=== PATIENT | male | born 1975 ===

== ENCOUNTER 2017-05-07 05:08 | Emergency (ER) | payer MEDICAID ==
[2017-05-07 05:09] VITALS: BMI 27.3
[2017-05-07 05:30] VITALS: RESP 18; TEMP 98
[2017-05-07] MEDS ORDERED: Albuterol-Ipratrop 3 mg / 0.5 (3 ml) UD INH STA ×2 (05:49→06:25)
--- NOTE | 2017-05-07 05:52 | ED PDOC ---
HPI: General Adult Time Seen by Provider: 05/07/17 05:40 Chief Complaint (Nursing): Flu-like Symptoms Chief Complaint (Provider): Shortness of breath, cough History Per: Patient History/Exam Limitations: no limitations Onset/Duration Of Symptoms: Days Have you had recent travel within the past 21 days to any of the following countries: [place], [place], [place] or [place]?: No Current Symptoms Are (Timing): Still Present Severity: Moderate Additional History Per: Patient Additional Complaint(s): 42 y/o male complaining of shortness of breath over the last few days associated with productive cough with white sputum, nasal congestion. Tonight he is more short of breath, prompting him to be seen. A few days ago he also reports fever that is resolved. No other complaints at this time. Past Medical History Vital Signs: Last Vital Signs Temp 98.0 F 05/07/17 05:29 Pulse 115 H 05/07/17 05:29 Resp 18 05/07/17 05:29 BP 112/73 05/07/17 05:29 Pulse Ox 98 05/07/17 05:54 - Medical History PMH: Anxiety, Bipolar Disorder, Depression, Personality Disorder, Post Traumatic Stress Disorder Denies: Asthma, Diabetes, Hepatitis, HIV, HTN, Chronic Kidney Disease, Seizures, Sexually Transmitted Disease - Surgical History Surgical History: Appendectomy - Family History Family History: States: Unknown Family Hx - Social History Current smoker - smoking cessation education provided: Yes (1/2 ppd) Alcohol: None Drugs: Denies - Immunization History Hx Tetanus Toxoid Vaccination: No Hx Influenza Vaccination: No Hx Pneumococcal Vaccination: No - Home Medications Home Medications: Ambulatory Orders Medication Instructions Recorded Fluoxetine HCl [Prozac] 40 mg PO DAILY 03/13/16 Gabapentin [Neurontin] 800 mg PO BID 03/13/16 QUEtiapine [SEROquel] 200 mg PO DAILY 03/13/16 Albuterol HFA [Ventolin HFA 90 1 - 2 puff IH Q4H PRN #1 bottle 05/07/17 mcg/actuation (8 g)] predniSONE [Prednisone] 40 mg PO DAILY #8 tab 05/07/17 - Allergies Allergies/Adverse Reactions: Allergies Allergy/AdvReac Type Severity Reaction Status Date / Time FISH Allergy SHORTNESS Verified 03/13/16 10:55 OF BREATH seafood Allergy Intermediate RASH Uncoded 03/13/16 10:55 Review of Systems ROS Statement: Except As Marked, All Systems Reviewed And Found Negative Respiratory: Positive for: Cough, Shortness of Breath Physical Exam - Reviewed Nursing Documentation Reviewed: Yes Vital Signs Reviewed: Yes - Physical Exam Appears: Positive for: Well, Non-toxic, No Acute Distress Head Exam: Positive for: ATRAUMATIC, NORMAL INSPECTION, NORMOCEPHALIC Skin: Positive for: Normal Color, Warm, DRY Eye Exam: Positive for: EOMI, Normal appearance, PERRL ENT: Positive for: Normal ENT Inspection Neck: Positive for: Normal, Painless ROM Cardiovascular/Chest: Positive for: Regular Rate, Rhythm Respiratory: Positive for: Normal Breath Sounds, Wheezing (diffuse). Negative for: Accessory Muscle Use, Respiratory Distress Gastrointestinal/Abdominal: Positive for: Normal Exam, Bowel Sounds, Soft Back: Positive for: Normal Inspection Extremity: Positive for: Normal ROM Neurologic/Psych: Positive for: Alert, Oriented - ECG ECG: Positive for: Interpreted By Me, Viewed By Me ECG Rhythm: Positive for: Normal QRS, Normal ST Segment, Sinus Rhythm (103), Sinus Tachycardia. Negative for: ST/T Changes, Nonspecific Changes O2 Sat by Pulse Oximetry: 98 Medical Decision Making Medical Decision Making: Impression: Cough, Shortness of Breath, Wheezing Plan: - Duo Neb - Prednisone Peak flow reviewed and is improved. On evaluation the patient is resting comfortably and his wheezing is resolved. Patient instructed to follow up with his PMD in the next two days. All questions answered. Scribe Attestation: Documented by Stella Moss, acting as a scribe for Kendra Ring MD. Provider Scribe Attestation: All medical record entries made by the Scribe were at my direction and personally dictated by me. I have reviewed the chart and agree that the record accurately reflects my personal performance of the history, physical exam, medical decision making, and the department course for this patient. I have also personally directed, reviewed, and agree with the discharge instructions and disposition. Disposition - Clinical Impression Clinical Impression: Wheezing - Patient ED Disposition Is Patient to be Admitted: No Doctor Will See Patient In The: Office Counseled Patient/Family Regarding: Diagnosis, Need For Followup - Disposition Referrals: [facility] [Outside] [facility] [Outside] Disposition: Routine/Home Disposition Time: 06:25 Condition: IMPROVED Additional Instructions: follow up with your doctor n 2 days return to the ED with any worsening or concerning symptoms Instructions: Wheezing (ED) Forms: [employer] (Angolan)
[2017-05-07] MEDS ORDERED: Albuterol-Ipratrop 3 mg / 0.5 (3 ml) UD ONE (06:37)
[2017-05-07 06:53] VITALS: BP 116/74; PULSE 94; O2SAT 99
== END 2017-05-07 06:53 | disposition home or self-care (01) ==
LOC: H.ER 05:08
DX: R06.2 Wheezing (principal)

== ENCOUNTER 2017-05-22 18:38 | Emergency (ER) | payer MEDICAID ==
[2017-05-22 18:38] VITALS: BMI 27.3
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
[2017-05-22] MEDS ORDERED: Naproxen 500 MG TAB PO STA (20:54)
--- NOTE | 2017-05-23 11:16 | RAD ---
PROCEDURE: Right Hand Radiographs. HISTORY: HAND INJURY COMPARISON: None. FINDINGS: BONES: Normal. No fracture. JOINTS: Normal. No osteoarthritic changes. SOFT TISSUES: Normal. OTHER FINDINGS: None. IMPRESSION: Normal right hand radiographs.
== END 2017-05-22 21:00 | disposition home or self-care (01) ==
LOC: H.ER 18:38
DX: S61.211A Laceration without foreign body of left index finger without damage to nail, initial encounter (principal); W26.8XXA Contact with other sharp object(s), not elsewhere classified, initial encounter; Y92.89 Other specified places as the place of occurrence of the external cause

== ENCOUNTER 2017-08-03 03:31 | Emergency (ER) | payer MEDICAID, OTHER ==
[2017-08-03 03:31] VITALS: BMI 27.3
[2017-08-03 04:00] VITALS: BP 118/79; PULSE 116; RESP 17; TEMP 97.8; O2SAT 96
[2017-08-03] MEDS ORDERED: Oxycodone/Acetaminophen 5/325 mg Tab PO STA (04:06)
--- NOTE | 2017-08-03 04:20 | ED PDOC ---
HPI: Dental Pain/Injury Time Seen by Provider: 08/03/17 03:48 Chief Complaint (Nursing): Dental Pain Chief Complaint (Provider): Dental Pain History Per: Patient History/Exam Limitations: no limitations Onset/Duration Of Symptoms: Days (x 5) Current Symptoms Are (Timing): Still Present Additional Complaint(s): Maik is a 42 year old male who presents to the emergency department with right lower dental pain for 5 days. Patient states he saw dentist and was told he needs a root canal, but has not followed up. Patient reports pain radiates to jaw and ears. States pain with chewing, but denies having fever, difficulty swallowing or drooling PMD: No Family Provider Past Medical History Reviewed: Historical Data, Nursing Documentation, Vital Signs Vital Signs: Last Vital Signs Temp 97.8 F 08/03/17 03:56 Pulse 116 H 08/03/17 03:56 Resp 17 08/03/17 03:56 BP 118/79 08/03/17 03:56 Pulse Ox 96 08/03/17 03:56 - Medical History PMH: Anxiety, Bipolar Disorder, Depression, Personality Disorder, Post Traumatic Stress Disorder Denies: Asthma, Diabetes, Hepatitis, HIV, HTN, Chronic Kidney Disease, Seizures, Sexually Transmitted Disease - Surgical History Surgical History: Appendectomy - Family History Family History: States: Unknown Family Hx - Immunization History Hx Tetanus Toxoid Vaccination: No Hx Influenza Vaccination: No Hx Pneumococcal Vaccination: No - Home Medications Home Medications: Ambulatory Orders Medication Instructions Recorded Fluoxetine HCl [Prozac] 40 mg PO DAILY 03/13/16 Gabapentin [Neurontin] 800 mg PO BID 03/13/16 QUEtiapine [SEROquel] 200 mg PO DAILY 03/13/16 Albuterol HFA [Ventolin HFA 90 1 - 2 puff IH Q4H PRN #1 bottle 05/07/17 mcg/actuation (8 g)] predniSONE [Prednisone] 40 mg PO DAILY #8 tab 05/07/17 Cephalexin [Keflex] 500 mg PO QID #20 capsule 05/22/17 Naproxen [Naprosyn] 500 mg PO BID PRN #14 tablet 08/03/17 Penicillin VK [Penicillin VK Tab] 250 mg PO Q6H #20 tab 08/03/17 - Allergies Allergies/Adverse Reactions: Allergies Allergy/AdvReac Type Severity Reaction Status Date / Time FISH Allergy SHORTNESS Verified 12/23/17 04:00 OF BREATH seafood Allergy Intermediate RASH Uncoded 08/03/17 04:00 Review of Systems ROS Statement: Except As Marked, All Systems Reviewed And Found Negative Constitutional: Negative for: Fever ENT: Positive for: Other (Dental Pain) Physical Exam - Reviewed Nursing Documentation Reviewed: Yes Vital Signs Reviewed: Yes - Physical Exam Appears: Positive for: Well (No Facial Swelling) ENT: Positive for: Other (Neurotic lower back molar with surrounding erythema, no neuropathy) Neck: Positive for: Supple - ECG O2 Sat by Pulse Oximetry: 96 (RA) Pulse Ox Interpretation: Normal Medical Decision Making Medical Decision Making: Time: 04:06 Prior charts/visits were reviewed and shows substance abuse. Patient's [employer] database and was query reviewing last narcotics December 2016. Given substance abuse of PCP and cocaine, pain will be treated in ER, but will not receive narcotics. Plan: - Penicillin VK Tab - Percocet 5/325 mg Tab Upon provider evaluation patient is medically stable, and requires no further treatment in the ED at this time. Patient will be discharged with Rx for Naprosyn and Penicillin VK Tab. Counseling was provided and all questions were answered regarding diagnosis and need for follow up with dentist. There is agreement to discharge plan. Return if symptoms persist or worsen. Scribe Attestation: Documented by Rocky Christiansen, acting as a scribe for Jg Jeong III, DO Provider Scribe Attestation: All medical record entries made by the Scribe were at my direction and personally dictated by me. I have reviewed the chart and agree that the record accurately reflects my personal performance of the history, physical exam, medical decision making, and the department course for this patient. I have also personally directed, reviewed, and agree with the discharge instructions and disposition. Disposition - Clinical Impression Clinical Impression: Pain, dental - Patient ED Disposition Is Patient to be Admitted: No - Disposition Disposition: Routine/Home Disposition Time: 04:22 Condition: STABLE Additional Instructions: Followup with dentist as soon as possible. Return to ER for any worse or new symptoms. Prescriptions: Naproxen [Naprosyn] 500 mg PO BID PRN #14 tablet PRN Reason: Pain, Moderate (4-7) Penicillin VK [Penicillin VK Tab] 250 mg PO Q6H #20 tab Instructions: Dental Caries (ED) Forms: [employer] (Telugu)
[2017-08-03] MEDS ORDERED: Oxycodone/Acetaminophen 5/325 mg Tab ONE (04:39)
== END 2017-08-03 04:45 | disposition home or self-care (01) ==
LOC: H.ER 03:31
DX: K08.89 Other specified disorders of teeth and supporting structures (principal); F31.9 Bipolar disorder, unspecified; F43.10 Post-traumatic stress disorder, unspecified

== ENCOUNTER 2017-09-27 06:31 | Inpatient (IN) | payer SELFPAY ==
[2017-09-27 06:31] VITALS: BMI 27.3
--- NOTE | 2017-09-27 08:40 | ED PDOC ---
HPI: Psych/Substance Abuse Time Seen by Provider: 09/27/17 07:08 Chief Complaint (Nursing): Psychiatric Evaluation Chief Complaint (Provider): sucidial ideation History Per: Patient History/Exam Limitations: no limitations Onset/Duration Of Symptoms: Days (12/25/17) Current Symptoms Are (Timing): Still Present Suicide/Self Injury Attempted (Context): Cut Wrists Modifying Factor(s): Marijuana, Cocaine, Other (PCP) Associated Symptoms: Depression, Suicidal Thoughts, Suicidal Plan Additional Complaint(s): Maik Cohen, a 42 year old male patient with a past medical history of depression and bipolar disorder presents to the ED complaining of suicidal ideation. He states he wanted to cut his wrist today. Denies of taking Prozac or Seroquel medication. Also denies current homicidal ideation. PMD: Provider TBD Past Medical History Reviewed: Historical Data, Nursing Documentation, Vital Signs Vital Signs: Last Vital Signs Temp 98 F 09/27/17 06:45 Pulse 110 H 09/27/17 06:45 Resp 18 09/27/17 06:45 BP 106/68 09/27/17 06:45 Pulse Ox 98 09/27/17 06:45 - Medical History PMH: Anxiety, Bipolar Disorder, Depression, Personality Disorder, Post Traumatic Stress Disorder Denies: Asthma, Diabetes, Hepatitis, HIV, HTN, Chronic Kidney Disease, Seizures, Sexually Transmitted Disease - Surgical History Surgical History: Appendectomy - Family History Family History: States: Unknown Family Hx - Social History Drugs: Cannabis, Cocaine, Other (PCP) - Immunization History Hx Tetanus Toxoid Vaccination: No Hx Influenza Vaccination: No Hx Pneumococcal Vaccination: No - Home Medications Home Medications: Ambulatory Orders Medication Instructions Recorded Fluoxetine HCl [Prozac] 40 mg PO DAILY 03/13/16 Gabapentin [Neurontin] 800 mg PO TID 03/13/16 QUEtiapine [SEROquel] 200 mg PO DAILY 03/13/16 Albuterol HFA [Ventolin HFA 90 1 - 2 puff IH Q4H PRN #1 bottle 05/07/17 mcg/actuation (8 g)] - Allergies Allergies/Adverse Reactions: Allergies Allergy/AdvReac Type Severity Reaction Status Date / Time FISH Allergy SHORTNESS Verified 09/27/17 06:45 OF BREATH seafood Allergy Intermediate RASH Uncoded 08/03/17 04:00 Review of Systems ROS Statement: Except As Marked, All Systems Reviewed And Found Negative Psych: Positive for: Suicidal ideation. Negative for: Other (homicidal ideation ) Physical Exam - Reviewed Nursing Documentation Reviewed: Yes Vital Signs Reviewed: Yes - Physical Exam Appears: Positive for: Well, Non-toxic, No Acute Distress Head Exam: Positive for: ATRAUMATIC, NORMAL INSPECTION, NORMOCEPHALIC Skin: Positive for: Normal Color, Warm, Dry Eye Exam: Positive for: EOMI, Normal appearance, PERRL ENT: Positive for: Normal ENT Inspection Neck: Positive for: Normal, Painless ROM, Supple. Negative for: Decreased ROM Cardiovascular/Chest: Positive for: Regular Rate, Rhythm. Negative for: Murmur , Bradycardia Respiratory: Positive for: Normal Breath Sounds. Negative for: Accessory Muscle Use, Wheezing, Respiratory Distress Gastrointestinal/Abdominal: Positive for: Normal Exam, Bowel Sounds, Soft. Negative for: Tenderness, Guarding Back: Positive for: Normal Inspection. Negative for: L CVA Tenderness, R CVA Tenderness Extremity: Positive for: Normal ROM. Negative for: Tenderness, Pedal Edema, Deformity Neurologic/Psych: Positive for: Alert, Oriented (x3) - Laboratory Results Result Diagrams: 09/27/17 08:43 09/27/17 08:43 - ECG O2 Sat by Pulse Oximetry: 98 (RA) Pulse Ox Interpretation: Normal Medical Decision Making Medical Decision Making: Time: 7:52 Initial Plan: --Acetaminophen --Alcohol serum --BMP --Drug screen --Salicylate --Crisis evaluation --ED urine dipstick --CBC --1:1 Observation for suicide precaution --Reevaluation Vital signs are stable. Labs reviewed. In my opinion there are no current acute medical conditions that contraindicate the placement of this patient in a psychiatric unit. Patient is accepted by Dr Pang for admission. Documented by Heather Coelho acting as a scribe for Huy Alegre MD. All medical record entries made by the Scribe were at my direction and personally dictated by me. I have reviewed the chart and agree that the record accurately reflects my personal performance of the history, physical exam, medical decision making, and the department course for this patient. I have also personally directed, reviewed, and agree with the discharge instructions and disposition. Disposition - Clinical Impression Clinical Impression: Bipolar disorder - Patient ED Disposition Is Patient to be Admitted: Yes Doctor Will See Patient In The: Hospital Counseled Patient/Family Regarding: Studies Performed, Diagnosis - Disposition Disposition Time: 10:50 Condition: FAIR - Pt Status Changed To: Hospital Disposition Of: Inpatient - Admit Certification Admit to Inpatient:: After my assessment, the patient will require hospitalization for at least two midnights. This is because of the severity of symptoms shown, intensity of services needed, and/or the medical risk in this patient being treated as an outpatient. - POA Present On Arrival: None
[2017-09-27 09:03] LABS: BASO # 0.1 K/uL (0.0-0.2); BASO % 1.2 % (0.0-2.0); EOS # 0.2 K/uL (0.0-0.7); EOS % 2.1 % (0.0-4.0); HEMOGLOBIN 15.6 g/dL (12.0-18.0); LYMPH # 2.8 K/uL (1.0-4.3); LYMPH % 30.4 % (20.0-40.0); MEAN CORPUSCULAR HEMOGLOBIN 29.6 pg (27.0-31.0); MEAN CORPUSCULAR HGB CONC 34.3 g/dL (33.0-37.0); MEAN PLATELET VOLUME 8.2 fl (7.2-11.7); MONO # 0.9 K/uL (0.0-0.8); MONO % 9.7 % (0.0-10.0); NEUT # 5.2 K/uL (1.8-7.0); NEUT % 56.6 % (50.0-75.0); NRBC % 0.1 % (0.0-0.0); RBC 5.28 Mil/uL (4.40-5.90); RED CELL DISTRIBUTION WIDTH 13.6 % (11.5-14.5); WHITE BLOOD COUNT 9.1 K/uL (4.8-10.8)
[2017-09-27 09:14] LABS: MEAN CELL VOLUME 86.3 fl (80.0-94.0)
[2017-09-27 09:21] LABS: BLOOD UREA NITROGEN 12 mg/dl (9-20); CALCIUM 9.3 mg/dL (8.4-10.2); GFR AFRICAN-AMERICAN > 60; GFR NON-AFRICAN AMERICAN > 60
[2017-09-27 09:22] LABS: ACETAMINOPHEN < 10.0 ug/ml (10.0-30.0); SALICYLATE < 1.0 mg/dl
[2017-09-27 11:42] LABS: BARBITURATES, UR NEGATIVE (NEGATIVE); BENZODIAZEPINES, UR NEGATIVE (NEGATIVE); OPIATES, UR NEGATIVE (NEGATIVE); PHENCYCLIDINE, UR POSITIVE (NEGATIVE)
[2017-09-27 12:21] VITALS: O2SAT 100
[2017-09-27] MEDS ORDERED: Alum-Mag Hydrox-Simethicone Susp (30 mL) PO PRN (15:13)
[2017-09-27] MEDS ORDERED: Magnesium Hydroxide Susp 30 ml UD PO PRN (15:13)
[2017-09-27] MEDS ORDERED: DiphenhydrAMINE 50 mg/ml Inj IM PRN (15:13)
--- NOTE | 2017-09-27 15:30 | PCM.PSYCH ---
Initial Psychiatric Evaluation - Initial Psychiatric Evaluation Type of Admission: Voluntary Legal Status: Capacity Chief Complaint (in patient's own words): I am depressed because I could not see my children Patient's Reaction to Hospitalization: pt requested help History of Present Illness and Precipitating Events: pt with previous psychiatric diagnosis of polysubstance use and depression Pt is a 42 year old, , , Male presented to ED secondary to Depression with Suicidal thoughts.pt with previous psychiatric diagnosis of polysubstance use and depression Pt reported suicidal ideation with plan to end his life by cutting his wrist, . Pt stated that he is currently giving up on life, due to losing his job, and his family. Pt is currently from his due to drug use, and has not seen his kids in 2 years. . Pt reported having sleeping disturbances and poor appetite, feeling hopeless and helpless . pt has been using PCP nad cocaine last use two days ago, dreported passive suicidal ideations with no plan or intent on the unit, denied manic or psychotic symptoms Current Medications: Active Medications Generic Name Dose Route Start Last Admin Trade Name Aricq PRN Reason Stop Dose Admin Acetaminophen 650 mg 09/27/17 15:13 Tylenol 325mg Tab PO Q4 PRN Pain, moderate (4-7) Al Hydrox/Mg Hydrox/Simethicone 30 ml 09/27/17 15:13 Maalox Plus 30 Ml PO Q4 PRN Dyspepsia Diphenhydramine HCl 50 mg 09/27/17 15:13 Benadryl IM Q6 PRN Extrapyramidal S/S Unable PO Diphenhydramine HCl 50 mg 09/27/17 15:13 Benadryl PO Q6 PRN Extrapyramidal Symptoms Gabapentin 300 mg 09/27/17 17:00 Neurontin PO TID SUSY Haloperidol 5 mg 09/27/17 15:13 Haldol PO Q4 PRN Agitation Haloperidol Lactate 5 mg 09/27/17 15:13 Haldol IM Q4 PRN Agitation, Unable to Take PO Lorazepam 2 mg 09/27/17 15:13 Ativan IM Q4 PRN Anxiety/Agitation,Unable PO Lorazepam 1 mg 09/27/17 15:15 Ativan PO TID PRN Anxiety Magnesium Hydroxide 30 ml 09/27/17 15:13 Milk Of Magnesia PO HS PRN Constipation Mirtazapine 15 mg 09/27/17 22:00 Remeron PO HS [facility] Past Psychiatric History - Past Psychiatric History Explanation of prior treatment: multiple inpatient hospitalizations, hx of non compliance History of ETOH/Drug Use: pcp and cocaine use disorder Pertinent Medical Hx (Current Medical&Sleep Prob, Allergies): Allergies Allergy/AdvReac Type Severity Reaction Status Date / Time FISH Allergy SHORTNESS Verified 09/27/17 06:45 OF BREATH seafood Allergy Intermediate RASH Uncoded 08/03/17 04:00 Fluoxetine HCl [Prozac] 40 mg PO DAILY 03/13/16 Gabapentin [Neurontin] 800 mg PO TID 03/13/16 QUEtiapine [SEROquel] 200 mg PO DAILY 03/13/16 Albuterol HFA [Ventolin HFA 90 mcg/actuation (8 g)] 1 - 2 puff IH Q4H PRN #1 bottle 05/07/17 Mental Status Examination - Personal Presentation Personal Presentation: Looks stated age - Affect Affect: Constricted, Depressed - Motor Activity Motor Activity: Psychomotor Retardation - Reliability in Providing Information Reliability in Providing Information: Poor, due to altered mood - Speech Speech: Relevant - Mood Mood: Depressed, Anxious - Formal Thought Process Formal Thought Process: Circumstantial - Hallucinations/Delusions Additional comments: denied perceptual disturbances, non elicited - Obsessions/Compulsions Obsessions: No Compulsions: No - Cognitive Functions Orientation: Person, Place, Situation Sensorium: Alert Judgement: Imparied, as evidence by: Poor judgement, Imparied, as evidence by: Lack of insight into illness - Risk Risk: Withdrawal, Diminished functioning - Strength & Assets Inventory Strength & Assets Inventory: Life experience - Limitations Additional comments: poor compliance DSM 5 DX - DSM 5 DSM 5 Diagnosis: cocaine induced mood disorder with depressive features cocaine use disorder PCP use disorder depression - Recommended/Plan of Treatment Treatment Recommendations and Plan of Treatment: neurontin 300mg tid for anxiety remeron 15mg qhs for depression motivational, group and supportive therapy
--- NOTE | 2017-09-27 17:43 | PCM.BM ---
Treatment Plan Problems - Problems identified on initial assessmt Hopelessness/Helplessness Date Initiated: 09/27/17 Time Initiated: 16:00 Assessment reference: NA Status: Active Treatment assets and liabiliti Patient Assests: adapts well, cooperative, ADL independent Patient Liabilities: financial problems, poor support system, relationship conflicts, substance abuse - Milieu Protocol Maintain good personal hygiene: daily Encourage regular showers, every shift Remind patient to perform daily oral care, every shift Assist patient to perform ADL's Maintain personal safety: every shift Educate patient to report safety concerns to staff, every shift Monitor environment for contraband/sharps Medication safety: Monitor for expected outcome, potential side effects: every shift, Assess barriers to learning: every shift, Assess readiness for medication education: every shift Milieu Narrative: neurontin 300mg tid for anxiety remeron 15mg qhs for depression motivational, group and supportive therapy Discharge/Continuing Care - Treatment Team Participation Patient/Family/SO Statement: neurontin 300mg tid for anxiety remeron 15mg qhs for depression motivational, group and supportive therapy
[2017-09-28 09:42] LABS: T4 5.17 ug/dl (5.5-11.0)
--- NOTE | 2017-09-28 18:32 | PCM.PSYCH ---
Initial Psychiatric Evaluation - Initial Psychiatric Evaluation Type of Admission: Voluntary Legal Status: Capacity Chief Complaint (in patient's own words): came to er complaining of suicidal ideations, wanting to cut wrists, not being able to see children, from , urine positive for cocaine and pcp. Patient's Reaction to Hospitalization: pt signed in voluntarily, later in day approx. 17:15 pt was seen in room with jose raul, this writer editor introduced himself, his role and his legal abilities to make assessments and to provide care. is seen noted to be getting dressed, stating want to sign out ama, attempted to assess any changes etc sts that is his right to sign out ama, attempted to offer psychoeducation related status, procedures related to pts. requesting to be ama, attempted to offer pt explanation- as to reason ie presentation day prior stating that pt was stating he no longer wanting to live, that he was going to cut his wrists, that he had given up on life, that he is from his , has not been able to see children, using pcp and cocaine. review 48 hour notice-pt has right to request to leave, institution has up to 48 hours to decide clinically if enough information has been able to be collected, enough time to assess and to see pattern of stabilization of some kind-particularly in context of pt repported to be in bed for most of day then appears to have arisen suddenly demanding to leave. Review with pt that pt has the ability to make phone calls-pt was allowed to call and to invite her to a team meeting to discuss care (pt stated that he (pt) wanted to get her involved-. Pt. requests to speak to dr quintanilla/attending md. dr quintanilla called discussed case with Dr. Quintanilla, including concerns for presentation (suicidal ideation with stated plan, stating having given up on life, being from and not being able to see ). Dr. Quintanilla was in agreement that in the context of concern for impaired insight and judgment at the time of this request, that a request should be submitted for screening by [facility] [place] [place]. Order for [facility] screening was written. A 48hour notice was initiated at 1745. History of Present Illness and Precipitating Events: see above Current Medications: Active Medications Generic Name Dose Route Start Last Admin Trade Name Freq PRN Reason Stop Dose Admin Acetaminophen 650 mg 09/27/17 15:13 Tylenol 325mg Tab PO Q4 PRN Pain, moderate (4-7) Al Hydrox/Mg Hydrox/Simethicone 30 ml 09/27/17 15:13 Maalox Plus 30 Ml PO Q4 PRN Dyspepsia Diphenhydramine HCl 50 mg 09/27/17 15:13 Benadryl IM Q6 PRN Extrapyramidal S/S Unable PO Diphenhydramine HCl 50 mg 09/27/17 15:13 Benadryl PO Q6 PRN Extrapyramidal Symptoms Gabapentin 300 mg 09/27/17 17:00 09/28/17 17:27 Neurontin PO 300 mg TID SUSY Administration Haloperidol 5 mg 09/27/17 15:13 Haldol PO Q4 PRN Agitation Haloperidol Lactate 5 mg 09/27/17 15:13 Haldol IM Q4 PRN Agitation, Unable to Take PO Lorazepam 2 mg 09/27/17 15:13 Ativan IM Q4 PRN Anxiety/Agitation,Unable PO Lorazepam 1 mg 09/27/17 15:15 09/27/17 17:19 Ativan PO 1 mg TID PRN Administration Anxiety Magnesium Hydroxide 30 ml 09/27/17 15:13 Milk Of Magnesia PO HS PRN Constipation Mirtazapine 15 mg 09/27/17 22:00 Remeron PO HS SUSY Past Psychiatric History - Past Psychiatric History Explanation of prior treatment: multiple inpatient hospitalizations, hx of non compliance Pertinent Medical Hx (Current Medical&Sleep Prob, Allergies): Allergies Allergy/AdvReac Type Severity Reaction Status Date / Time FISH Allergy SHORTNESS Verified 09/27/17 06:45 OF BREATH seafood Allergy Intermediate RASH Uncoded 08/03/17 04:00 Fluoxetine HCl [Prozac] 40 mg PO DAILY 03/13/16 Gabapentin [Neurontin] 800 mg PO TID 03/13/16 QUEtiapine [SEROquel] 200 mg PO DAILY 03/13/16 Albuterol HFA [Ventolin HFA 90 mcg/actuation (8 g)] 1 - 2 puff IH Q4H PRN #1 bottle 05/07/17 Mental Status Examination - Personal Presentation Personal Presentation: Looks stated age - Affect Affect: Broad - Motor Activity Motor Activity: Psychomotor Agitation - Reliability in Providing Information Reliability in Providing Information: Other - Mood Mood: Anxious - Cognitive Functions Orientation: Place Sensorium: Alert Judgement: Imparied, as evidence by: Other Memory: Remote impaired as evidenced by: Other - Risk Risk: Homicidal, Withdrawal (nonadhrence, polusubtance use, stated suicidal ideation, upon admission) DSM 5 DX - DSM 5 DSM 5 Diagnosis: major depression polysubtance use-cocaine/pcp substance induced mood disorder Hx of non adherence - Recommended/Plan of Treatment Treatment Recommendations and Plan of Treatment: inpt admission per attending vital signs and clinical observation per protocol and per status hospitalist consult will discontinue remeron -pt reports somnolence prns per unit protocol per discussion with dr. sharpe-will contact [facility] [place] [facility] (0rder written for screening) -presentation to er, stating that had given up on life, wanted to cut wrists, from , not being able to see children with in 24 hours was demanding ama-an attempt was made to explain concerns related hx , substance use, possible withdrawal from polysubtances concerns for potential impaired judgment discharge planning will be make accordingly Projected ELOS: 2-3 days Prognosis: guarded Discharge Plan and Discharge Criteria: safety if deemed not being acute concerns for safety by [facility] [place] [place] screeners pt can be discharged (concern for safety judgment) - Smoking Cessation Smoking Cessation Initiated: No Reason for not providing: pt defers
--- NOTE | 2017-09-28 20:17 | CP.PCM.CON ---
History of Present Illness - History of Present Illness History of Present Illness: patient refused to be interviewed and examined. Past Patient History - Infectious Disease Hx of Infectious Diseases: None - Tetanus Immunizations Tetanus Immunization: Unknown - Past Social History Drugs: Cannabis, Cocaine, Other (PCP) - CARDIAC Hx Cardiac Disorders: No - PULMONARY Hx Respiratory Disorders: No Hx Tuberculosis: No - NEUROLOGICAL Hx Neurological Disorder: No HX Cerebrovascular Accident: No Hx Seizures: No - HEENT Hx HEENT Problems: No - RENAL Hx Chronic Kidney Disease: No - ENDOCRINE/METABOLIC Hx Endocrine Disorders: No - HEMATOLOGICAL/ONCOLOGICAL Hx Blood Disorders: No Hx Cancer: No Hx Human Immunodeficiency Virus (HIV): No - INTEGUMENTARY Hx Dermatological Problems: No - MUSCULOSKELETAL/RHEUMATOLOGICAL Hx Musculoskeletal Disorders: Yes Other/Comment: Hx tendonitis - GASTROINTESTINAL Hx Gastrointestinal Disorders: No - GENITOURINARY/GYNECOLOGICAL Hx Genitourinary Disorders: No Hx Sexually Transmitted Disorders: No - PSYCHIATRIC Hx Bipolar Disorder: Yes Hx Substance Use: Yes (PCP, Cocaine) - SURGICAL HISTORY Hx Surgeries: Yes Hx Appendectomy: Yes - ANESTHESIA Hx Anesthesia: Yes Hx Anesthesia Reactions: No Hx Malignant Hyperthermia: No Has any member of the family had a problem w/ anesthesia?: No Meds Allergies/Adverse Reactions: Allergies Allergy/AdvReac Type Severity Reaction Status Date / Time FISH Allergy SHORTNESS Verified 09/27/17 06:45 OF BREATH seafood Allergy Intermediate RASH Uncoded 08/03/17 04:00 - Medications Medications: Current Medications Acetaminophen (Tylenol 325mg Tab) 650 mg PO Q4 PRN PRN Reason: Pain, moderate (4-7) Al Hydrox/Mg Hydrox/Simethicone (Maalox Plus 30 Ml) 30 ml PO Q4 PRN PRN Reason: Dyspepsia Diphenhydramine HCl (Benadryl) 50 mg IM Q6 PRN PRN Reason: Extrapyramidal S/S Unable PO Diphenhydramine HCl (Benadryl) 50 mg PO Q6 PRN PRN Reason: Extrapyramidal Symptoms Gabapentin (Neurontin) 300 mg PO TID [facility] Last Admin: 09/28/17 17:27 Dose: 300 mg Haloperidol (Haldol) 5 mg PO Q4 PRN PRN Reason: Agitation Haloperidol Lactate (Haldol) 5 mg IM Q4 PRN PRN Reason: Agitation, Unable to Take PO Lorazepam (Ativan) 2 mg IM Q4 PRN PRN Reason: Anxiety/Agitation,Unable PO Lorazepam (Ativan) 1 mg PO TID PRN PRN Reason: Anxiety Last Admin: 09/28/17 18:26 Dose: 1 mg Magnesium Hydroxide (Milk Of Magnesia) 30 ml PO HS PRN PRN Reason: Constipation Results - Vital Signs Recent Vital Signs: Last Vital Signs Temp 97.7 F 09/28/17 09:00 Pulse 82 09/28/17 09:00 Resp 20 09/28/17 09:00 BP 99/62 L 09/28/17 09:00 Pulse Ox 100 09/27/17 12:20 - Labs Result Diagrams: 09/27/17 08:43 09/27/17 08:43 Labs: Laboratory Results - last 24 hr 09/28/17 09/28/17 07:54 07:54 Triglycerides 254 H Cholesterol 206 H LDL Cholesterol Direct 139 H HDL Cholesterol 42 Thyroxine (T4) 5.17 L TSH 3rd Generation 0.29 L RPR Nonreactive
[2017-09-29 10:00] VITALS: BP 122/64; PULSE 84; RESP 18; TEMP 97.2
--- NOTE | 2017-09-29 10:14 | RAD ---
HISTORY: Transfer COMPARISON: No prior. FINDINGS: LUNGS: No active pulmonary disease. PLEURA: No significant pleural effusion identified, no pneumothorax apparent. CARDIOVASCULAR: Normal. OSSEOUS STRUCTURES: No significant abnormalities. VISUALIZED UPPER ABDOMEN: Normal. OTHER FINDINGS: None. IMPRESSION: No active disease.
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
== END 2017-09-29 13:00 | disposition home or self-care (01) | DRG 885 ==
LOC: H.ER 06:31 → H.ERHOLD 10:50 → H.PSYCH 13:59
PROVIDERS: ADMIT Psychiatry & Neurology Psychiatry; ATTEND Psychiatry & Neurology Psychiatry
PROC: GZHZZZZ Group Psychotherapy (ICD-10-PCS; principal; 2017-09-27)
PROC: GZ51ZZZ Individual Psychotherapy, Behavioral (ICD-10-PCS; 2017-09-27)
DX: F31.9 Bipolar disorder, unspecified (principal); R45.851 Suicidal ideations; F11.20 Opioid dependence, uncomplicated; Z91.19 Patient's noncompliance with other medical treatment and regimen; F43.10 Post-traumatic stress disorder, unspecified; F60.9 Personality disorder, unspecified; Z90.49 Acquired absence of other specified parts of digestive tract; F41.9 Anxiety disorder, unspecified; M77.9 Enthesopathy, unspecified; Z79.899 Other long term (current) drug therapy; F14.14 Cocaine abuse with cocaine-induced mood disorder; F16.10 Hallucinogen abuse, uncomplicated

== ENCOUNTER 2018-03-27 02:27 | Emergency (ER) | payer MEDICAID, OTHER ==
[2018-03-27 02:28] VITALS: BMI 27.3
[2018-03-27 02:33] VITALS: BP 135/65; RESP 16; TEMP 98.4; O2SAT 100
--- NOTE | 2018-03-27 02:59 | ED PDOC ---
HPI: General Adult Time Seen by Provider: 03/27/18 02:45 Chief Complaint (Nursing): Psychiatric Evaluation Chief Complaint (Provider): clearance for incarceration History Per: Patient Additional Complaint(s): 43 y/o male here in police custody here for clearance for incarceration. Patient admits to using PCP tonight. Patient denies suicidal/homicidal ideations or acute physical complaints. Past Medical History Reviewed: Historical Data, Nursing Documentation, Vital Signs Vital Signs: Last Vital Signs Temp 98.4 F 03/27/18 02:31 Pulse 96 H 03/27/18 02:31 Resp 16 03/27/18 02:31 BP 135/65 03/27/18 02:31 Pulse Ox 100 03/27/18 02:31 - Medical History PMH: Anxiety, Bipolar Disorder, Depression, Personality Disorder, Post Traumatic Stress Disorder Denies: Asthma, Diabetes, Hepatitis, HIV, HTN, Chronic Kidney Disease, Seizures, Sexually Transmitted Disease - Surgical History Surgical History: Appendectomy - Family History Family History: States: Unknown Family Hx - Immunization History Hx Tetanus Toxoid Vaccination: No Hx Influenza Vaccination: No Hx Pneumococcal Vaccination: No - Home Medications Home Medications: Ambulatory Orders Medication Instructions Recorded Fluoxetine HCl [Prozac] 40 mg PO DAILY 03/13/16 Gabapentin [Neurontin] 800 mg PO TID 03/13/16 QUEtiapine [SEROquel] 200 mg PO DAILY 03/13/16 Albuterol HFA [Ventolin HFA 90 1 - 2 puff IH Q4H PRN #1 bottle 05/07/17 mcg/actuation (8 g)] - Allergies Allergies/Adverse Reactions: Allergies Allergy/AdvReac Type Severity Reaction Status Date / Time FISH Allergy SHORTNESS Verified 10/01/17 05:02 OF BREATH seafood Allergy Intermediate RASH Uncoded 10/01/17 05:02 Review of Systems ROS Statement: Except As Marked, All Systems Reviewed And Found Negative Physical Exam - Reviewed Nursing Documentation Reviewed: Yes Vital Signs Reviewed: Yes - Physical Exam Appears: Positive for: Well, Non-toxic, No Acute Distress Head Exam: Positive for: ATRAUMATIC, NORMAL INSPECTION, NORMOCEPHALIC Skin: Positive for: Normal Color Eye Exam: Positive for: Normal appearance ENT: Positive for: Normal ENT Inspection Cardiovascular/Chest: Positive for: Regular Rate, Rhythm Respiratory: Positive for: Normal Breath Sounds Gastrointestinal/Abdominal: Positive for: Normal Exam Back: Positive for: Normal Inspection Extremity: Positive for: Normal ROM Neurologic/Psych: Positive for: Alert, Oriented (x3) - ECG O2 Sat by Pulse Oximetry: 100 Disposition - Clinical Impression Clinical Impression: PCP abuse - Patient ED Disposition Is Patient to be Admitted: No Counseled Patient/Family Regarding: Diagnosis, Need For Followup - Disposition Disposition: Discharged/Transfer to Law Enforcement Disposition Time: 03:00 Condition: STABLE Additional Instructions: Patient medically and psychiatrically cleared for incarceration Instructions: Drug Abuse and Drug Addiction (DC)
[2018-03-27 03:24] VITALS: PULSE 88
== END 2018-03-27 03:25 ==
LOC: H.ER 02:27
DX: F16.10 Hallucinogen abuse, uncomplicated (principal); F31.9 Bipolar disorder, unspecified; F43.10 Post-traumatic stress disorder, unspecified

== ENCOUNTER 2018-05-28 15:44 | Emergency (ER) | payer OTHER ==
[2018-05-28 15:44] VITALS: BMI 27.3
[2018-05-28 15:59] VITALS: TEMP 98.5
--- NOTE | 2018-05-28 17:19 | ED PDOC ---
HPI: Psych/Substance Abuse Time Seen by Provider: 05/28/18 16:05 Chief Complaint (Nursing): Psychiatric Evaluation Chief Complaint (Provider): Psychiatric Evaluation History Per: Patient History/Exam Limitations: no limitations Onset/Duration Of Symptoms: Unknown Current Symptoms Are (Timing): Still Present Additional Complaint(s): 43 year old male presents to the ED for a psychiatric evaluation. Patient states that for an unknown period of time, he has been feeling scared, as if someone is after him. Admits to feeling suicidal, but when asked if he has a plan, he says he is just "thinking of stuff." Pt additionally admits to taking PCP three hours prior to arrival. At this time, he has no physical complaints and denies homicidal ideation and hallucinations. PMD: Jg Kiser Past Medical History Reviewed: Historical Data, Nursing Documentation, Vital Signs Vital Signs: Last Vital Signs Temp 98.5 F 05/28/18 15:57 Pulse 90 05/28/18 15:57 Resp 16 05/28/18 15:57 BP 122/79 05/28/18 15:57 Pulse Ox 97 05/28/18 15:57 - Medical History PMH: Anxiety, Bipolar Disorder, Depression, Personality Disorder, Post Traumatic Stress Disorder Denies: Asthma, Diabetes, Hepatitis, HIV, HTN, Chronic Kidney Disease, Seizures, Sexually Transmitted Disease - Surgical History Surgical History: Appendectomy - Family History Family History: States: Unknown Family Hx - Social History Drugs: Other (PCP) - Immunization History Hx Tetanus Toxoid Vaccination: No Hx Influenza Vaccination: No Hx Pneumococcal Vaccination: No - Home Medications Home Medications: Ambulatory Orders Medication Instructions Recorded Fluoxetine HCl [Prozac] 40 mg PO DAILY 03/13/16 Gabapentin [Neurontin] 800 mg PO TID 03/13/16 QUEtiapine [SEROquel] 200 mg PO DAILY 03/13/16 Albuterol HFA [Ventolin HFA 90 1 - 2 puff IH Q4H PRN #1 bottle 05/07/17 mcg/actuation (8 g)] - Allergies Allergies/Adverse Reactions: Allergies Allergy/AdvReac Type Severity Reaction Status Date / Time No Known Allergies Allergy Verified 05/28/18 15:57 Review of Systems ROS Statement: Except As Marked, All Systems Reviewed And Found Negative Psych: Positive for: Suicidal ideation. Negative for: Other (hallucinations, homicidal ideation) Physical Exam - Reviewed Nursing Documentation Reviewed: Yes Vital Signs Reviewed: Yes - Physical Exam Appears: Positive for: No Acute Distress Head Exam: Positive for: ATRAUMATIC, NORMOCEPHALIC Skin: Positive for: Normal Color Eye Exam: Positive for: Normal appearance ENT: Positive for: Normal ENT Inspection Neck: Positive for: Normal, Painless ROM, Supple Cardiovascular/Chest: Positive for: Regular Rate, Rhythm Respiratory: Positive for: Normal Breath Sounds. Negative for: Respiratory Distress Gastrointestinal/Abdominal: Positive for: Normal Exam, Soft. Negative for: Tenderness Back: Positive for: Normal Inspection Extremity: Positive for: Normal ROM Neurologic/Psych: Positive for: Alert, Oriented (x3), Mood/Affect (calm, cooperative), Gait (steady, unassisted) - ECG O2 Sat by Pulse Oximetry: 97 (RA) Pulse Ox Interpretation: Normal Medical Decision Making Medical Decision Making: Time: 1606 Initial Impression: suicidal ideation Initial Plan: --Drug screen --Crisis eval --1:1 observation --Reevaluation 1900 Pt evaluated by Lois, harvest worker field crop, who spoke to Dr. Quintanilla and cleared pt for discharge. At this time he denies si, hi, and hallucinations. Scribe Attestation: Documented by Casandra Vasquez, acting as a scribe for Desean Daniel PA-C. Provider Scribe Attestation: All medical record entries made by the Scribe were at my direction and personally dictated by me. I have reviewed the chart and agree that the record accurately reflects my personal performance of the history, physical exam, medical decision making, and the department course for this patient. I have also personally directed, reviewed, and agree with the discharge instructions and disposition. Disposition - Clinical Impression Clinical Impression: PCP (phencyclidine) abuse - Patient ED Disposition Is Patient to be Admitted: No - Disposition Disposition: Routine/Home Disposition Time: 19:03 Condition: IMPROVED Additional Instructions: PALOMO LEROY, thank you for letting us take care of you today. Your provider was Radha Aguayo MD and you were treated for PSYCH EVAL. The emergency medical care you received today was directed at your acute symptoms. If you were prescribed any medication, please fill it and take as directed. It may take several days for your symptoms to resolve. Return to the Emergency Department if your symptoms worsen, do not improve, or if you have any other problems. Please contact your doctor or call one of the physicians/clinics you have been referred to that are listed on the Patient Visit Information form that is included in your discharge packet. Bring any paperwork you were given at discharge with you along with any medications you are taking to your follow up visit. Our treatment cannot replace ongoing medical care by a primary care provider outside of the emergency department. Thank you for allowing the [email or web address] team to be part of your care today. If you had an X-Ray or CT scan: A Radiologist will review the ED reading if any change in treatment is needed we will contact you. If you had a blood, urine, or wound culture: It will take several days for the results, if any change in treatment is needed we will contact you. If you had an STI test: It will take 48 hours for the results. Please call after 1 week if you have not heard back. Instructions: Drug Abuse and Drug Addiction (DC) Forms: [email or web address] (Chinese) Print Language: ICELANDIC
[2018-05-28 19:13] LABS: BARBITURATES, UR NEGATIVE (NEGATIVE); BENZODIAZEPINES, UR NEGATIVE (NEGATIVE); OPIATES, UR NEGATIVE (NEGATIVE); PHENCYCLIDINE, UR POSITIVE (NEGATIVE)
[2018-05-28 19:42] VITALS: BP 127/86; PULSE 84; RESP 17; O2SAT 99
== END 2018-05-28 19:41 | disposition home or self-care (01) ==
LOC: H.ER 15:44
DX: F16.10 Hallucinogen abuse, uncomplicated (principal); F31.9 Bipolar disorder, unspecified; F43.10 Post-traumatic stress disorder, unspecified

== ENCOUNTER 2018-09-18 02:59 | Emergency (ER) | payer SELFPAY ==
[2018-09-18 02:59] VITALS: BMI 27.3
--- NOTE | 2018-09-18 03:51 | ED PDOC ---
HPI: Psych/Substance Abuse Time Seen by Provider: 09/18/18 03:19 Chief Complaint (Nursing): Psychiatric Evaluation Chief Complaint (Provider): psych eval History Per: Patient Additional Complaint(s): 43 y/o male presents to ED for psych eval. Patient states "I want to kill myself". When asked how long he has been feeling this way he replies "all my life". Patient states "I have a few plans". 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 Patient denies homicidal ideations, hallucinations, acute physical complaints. Past Medical History Reviewed: Historical Data, Nursing Documentation, Vital Signs Vital Signs: Last Vital Signs Temp 98.0 F 09/18/18 03:09 Pulse 109 H 09/18/18 03:09 Resp 16 09/18/18 03:09 BP 100/59 L 09/18/18 03:09 Pulse Ox 95 09/18/18 03:09 - Medical History PMH: Anxiety, Bipolar Disorder, Depression, Personality Disorder, Post Traumatic Stress Disorder Denies: Asthma, Diabetes, Hepatitis, HIV, HTN, Chronic Kidney Disease, Seizures, Sexually Transmitted Disease - Surgical History Surgical History: Appendectomy - Family History Family History: States: Unknown Family Hx - Immunization History Hx Tetanus Toxoid Vaccination: No Hx Influenza Vaccination: No Hx Pneumococcal Vaccination: No - Home Medications Home Medications: Ambulatory Orders Medication Instructions Recorded Fluoxetine HCl [Prozac] 40 mg PO DAILY 03/13/16 Gabapentin [Neurontin] 800 mg PO TID 03/13/16 QUEtiapine [SEROquel] 200 mg PO DAILY 03/13/16 Albuterol HFA [Ventolin HFA 90 1 - 2 puff IH Q4H PRN #1 bottle 05/07/17 mcg/actuation (8 g)] - Allergies Allergies/Adverse Reactions: Allergies Allergy/AdvReac Type Severity Reaction Status Date / Time No Known Allergies Allergy Verified 05/28/18 15:57 Review of Systems ROS Statement: Except As Marked, All Systems Reviewed And Found Negative Psych: Positive for: Suicidal ideation Physical Exam - Reviewed Nursing Documentation Reviewed: Yes Vital Signs Reviewed: Yes - Physical Exam Appears: Positive for: Well, Non-toxic, No Acute Distress Head Exam: Positive for: ATRAUMATIC, NORMAL INSPECTION, NORMOCEPHALIC Skin: Positive for: Normal Color Eye Exam: Positive for: Normal appearance ENT: Positive for: Normal ENT Inspection Cardiovascular/Chest: Positive for: Regular Rate, Rhythm Respiratory: Positive for: Normal Breath Sounds Gastrointestinal/Abdominal: Positive for: Normal Exam Back: Positive for: Normal Inspection Extremity: Positive for: Normal ROM Neurologic/Psych: Positive for: Alert, Oriented (x3) - ECG O2 Sat by Pulse Oximetry: 95 - Progress ED Course And Treament: -1:1 -crisis eval Patient evaluated by clerical and administrative workers; does not meet criteria for admission at this time as per Dr. Quintanilla Patient requires no further intervention in the ED and is stable for discharge at this time Disposition - Clinical Impression Clinical Impression: Substance abuse - Patient ED Disposition Is Patient to be Admitted: No Counseled Patient/Family Regarding: Diagnosis, Need For Followup - Disposition Disposition: Routine/Home Disposition Time: 05:03 Condition: IMPROVED Instructions: Drug Abuse and Drug Addiction (DC)
[2018-09-18 05:50] VITALS: BP 106/63; PULSE 95; RESP 19; TEMP 98.2; O2SAT 99
== END 2018-09-18 06:23 | disposition home or self-care (01) ==
LOC: H.ER 02:59
DX: F19.10 Other psychoactive substance abuse, uncomplicated (principal); Z86.59 Personal history of other mental and behavioral disorders; Z00.8 Encounter for other general examination; F43.10 Post-traumatic stress disorder, unspecified

== ENCOUNTER 2018-10-27 17:07 | Emergency (ER) | payer SELFPAY ==
[2018-10-27 17:08] VITALS: BMI 27.3
[2018-10-27 17:18] VITALS: RESP 18; TEMP 98; O2SAT 99
--- NOTE | 2018-10-27 19:01 | ED PDOC ---
HPI: General Adult Time Seen by Provider: 10/27/18 18:36 Chief Complaint (Nursing): Medical Clearance Chief Complaint (Provider): Medical and Psych Clearance for Incarceratin History Per: Patient History/Exam Limitations: other (uncooperation) Additional Complaint(s): Pt presents to the ED with HPD for medical and psychological clearnance prior to incarceration. Pt indicates that he has tendonitis of the right shoulder for which he takes pain medication and anti-inflamatory medication. I offered the pt an NSAID and he said that motrin does nothing to help. He was asked three times what NSAID he was taking and he refused a response. He stated that "if you don't give me pain medication, you are nothing to me." Past Medical History Reviewed: Historical Data, Nursing Documentation, Vital Signs Vital Signs: Last Vital Signs Temp 98 F 10/27/18 17:16 Pulse 70 10/27/18 17:16 Resp 18 10/27/18 17:16 BP 130/90 10/27/18 17:16 Pulse Ox 99 10/27/18 17:16 - Medical History PMH: Anxiety, Bipolar Disorder, Depression, Personality Disorder, Post Traumatic Stress Disorder Denies: Asthma, Diabetes, Hepatitis, HIV, HTN, Chronic Kidney Disease, Seizures, Sexually Transmitted Disease - Surgical History Surgical History: Appendectomy - Family History Family History: States: Unknown Family Hx - Immunization History Hx Tetanus Toxoid Vaccination: No Hx Influenza Vaccination: No Hx Pneumococcal Vaccination: No - Home Medications Home Medications: Ambulatory Orders Medication Instructions Recorded Fluoxetine HCl [Prozac] 40 mg PO DAILY 03/13/16 Gabapentin [Neurontin] 800 mg PO TID 03/13/16 QUEtiapine [SEROquel] 200 mg PO DAILY 03/13/16 Albuterol HFA [Ventolin HFA 90 1 - 2 puff IH Q4H PRN #1 bottle 05/07/17 mcg/actuation (8 g)] - Allergies Allergies/Adverse Reactions: Allergies Allergy/AdvReac Type Severity Reaction Status Date / Time No Known Allergies Allergy Verified 05/28/18 15:57 Review of Systems ROS Statement: Except As Marked, All Systems Reviewed And Found Negative Musculoskeletal: Positive for: Shoulder Pain Physical Exam - Reviewed Nursing Documentation Reviewed: Yes Vital Signs Reviewed: Yes - Physical Exam Appears: Positive for: Well, No Acute Distress. Negative for: Uncomfortable, In Acute Distress Head Exam: Positive for: ATRAUMATIC, NORMAL INSPECTION Skin: Positive for: Normal Color, Warm, Dry. Negative for: Diaphoresis, Pallor, Rash Eye Exam: Positive for: Normal appearance. Negative for: Periorbital swelling, Periorbital tenderness Neck: Positive for: Normal, Painless ROM, Supple Cardiovascular/Chest: Positive for: Regular Rate, Rhythm Respiratory: Positive for: Normal Breath Sounds Pulses-Carotid (L): 2+ Pulses-Carotid (R): 2+ Pulses-Radial (L): 2+ Pulses-Radial (R): 2+ - ECG O2 Sat by Pulse Oximetry: 99 Medical Decision Making Medical Decision Making: I: Medical and Psychiatric Clearance for Incarceration P: Crisis Screen Medical Clearance The patient has been medically cleared for incarceration The patient has been psychologically cleared for incarceration The patient is stable for discharge Disposition - Clinical Impression Clinical Impression: Substance abuse - Patient ED Disposition Is Patient to be Admitted: No Discussed With DrKristen: Ned Quintanilla - Disposition Disposition: Discharged/Transfer to Law Enforcement Disposition Time: 19:08 Condition: STABLE Additional Instructions: The patient is medically cleared for incarceration The patient is psychologically cleared for incarceration Instructions: General (DC) Forms: [employer] (Divehi)
[2018-10-27 21:06] VITALS: BP 130/80; PULSE 84
== END 2018-10-27 19:10 ==
LOC: H.ER 17:07
DX: F19.10 Other psychoactive substance abuse, uncomplicated (principal); F31.9 Bipolar disorder, unspecified; F43.10 Post-traumatic stress disorder, unspecified

== ENCOUNTER 2018-11-04 07:46 | Emergency (ER) | payer SELFPAY ==
[2018-11-04 07:58] VITALS: BP 106/73; PULSE 90; RESP 18; TEMP 98.3; O2SAT 99
[2018-11-04 07:59] VITALS: BMI 28.1
[2018-11-04] MEDS ORDERED: Naloxone 0.4 mg/ml Inj (Adult) IVP STA (08:01)
--- NOTE | 2018-11-04 08:03 | ED PDOC ---
HPI: General Adult Time Seen by Provider: 11/04/18 07:48 Chief Complaint (Provider): Shortness of breath, PCP abuse History Per: Other (Police) History/Exam Limitations: clinical condition Additional Complaint(s): 43yo male brought to ER by EMS under police custody, due to complaints of shortness of breath. Per accompanying customs and border protection officer, when patient was informed he would be going to [facility], he started complaining of shortness of breath. No other complaints of chest pain, cough, fever or chills. Of note, customs and border protection officer states patient was awake and alert upon arrest and had admitted to PCP use. HPI and ROS limited as patient is lethargic, somnolent and not responsive to verbal stimuli. Past Medical History Reviewed: Historical Data, Nursing Documentation, Vital Signs Vital Signs: Last Vital Signs Temp 98.3 F 11/04/18 07:57 Pulse 90 11/04/18 07:57 Resp 18 11/04/18 07:57 BP 106/73 11/04/18 07:57 Pulse Ox 99 11/04/18 07:57 - Medical History PMH: Anxiety, Bipolar Disorder, Depression, Personality Disorder, Post Traumatic Stress Disorder Denies: Asthma, Diabetes, Hepatitis, HIV, HTN, Chronic Kidney Disease, Seizures, Sexually Transmitted Disease - Surgical History Surgical History: Appendectomy - Family History Family History: States: Unknown Family Hx - Immunization History Hx Tetanus Toxoid Vaccination: No Hx Influenza Vaccination: No Hx Pneumococcal Vaccination: No - Home Medications Home Medications: Ambulatory Orders Medication Instructions Recorded Fluoxetine HCl [Prozac] 40 mg PO DAILY 03/13/16 Gabapentin [Neurontin] 800 mg PO TID 03/13/16 QUEtiapine [SEROquel] 200 mg PO DAILY 03/13/16 Albuterol HFA [Ventolin HFA 90 1 - 2 puff IH Q4H PRN #1 bottle 05/07/17 mcg/actuation (8 g)] - Allergies Allergies/Adverse Reactions: Allergies Allergy/AdvReac Type Severity Reaction Status Date / Time No Known Allergies Allergy Verified 05/28/18 15:57 Review of Systems Constitutional: Negative for: Fever, Chills Cardiovascular: Negative for: Chest Pain Respiratory: Positive for: Shortness of Breath Physical Exam - Reviewed Nursing Documentation Reviewed: Yes Vital Signs Reviewed: Yes - Physical Exam Appears: Positive for: No Acute Distress Head Exam: Positive for: ATRAUMATIC, NORMAL INSPECTION, NORMOCEPHALIC Skin: Positive for: Normal Color Eye Exam: Positive for: EOMI, PERRL Cardiovascular/Chest: Positive for: Regular Rate, Rhythm. Negative for: Tachycardia Respiratory: Positive for: Normal Breath Sounds. Negative for: Rales, Rhonchi, Wheezing, Respiratory Distress Neurological/Psych: Positive for: Lethargic (patient lethargic, somnolent and not responding to verbal stimuli) - ECG O2 Sat by Pulse Oximetry: 99 (RA) Pulse Ox Interpretation: Normal - Progress Re-evaluation Time: 08:41 Condition: Improved (Awake alert oriented x 3 No resp distress) Medical Decision Making Medical Decision Makinyo male with shortness of breath, currently under police custody Plan: -- Workup for medical and psychiatric clearance for incarceration -- Labs -- UDS -- Narcan 0.4 mg IV -- Crisis evaluation 828 Narcan not given as patient is now awake and alert. Scribe Attestation: Documented by Toma Jordan, acting as a scribe for Abdirizak Oden MD Provider Scribe Attestation: All medical record entries made by the Scribe were at my direction and personally dictated by me. I have reviewed the chart and agree that the record accurately reflects my personal performance of the history, physical exam, medical decision making, and the department course for this patient. I have also personally directed, reviewed, and agree with the discharge instructions and disposition. Disposition - Clinical Impression Clinical Impression: Substance abuse - Patient ED Disposition Is Patient to be Admitted: No Counseled Patient/Family Regarding: Diagnosis - Disposition Disposition: Discharged/Transfer to Law Enforcement Disposition Time: 08:42 Condition: FAIR Additional Instructions: Medically and psychiatrically stable for incarceration Instructions: Polysubstance Abuse
--- NOTE | 2018-11-07 14:02 | CARD ---
APPROVED REPORT Date of service: 11/04/2018 EKG Measurement Heart [id number] <Conclusion> Normal sinus rhythm Normal ECG
== END 2018-11-04 11:18 ==
LOC: H.ER 07:46
DX: F19.10 Other psychoactive substance abuse, uncomplicated (principal); F31.9 Bipolar disorder, unspecified; F43.10 Post-traumatic stress disorder, unspecified
CPT/HCPCS: 93005; 99284; G0480